=== PATIENT | male | born 1940 | race Caucasian/White ===

== ENCOUNTER → 2019-05-31 13:07 | Outpatient (CLI) | payer MEDICARE, OTHER ==
[~2019-05-31 13:07] MED LIST: ASPIRIN EC81 M1 PO; HYDROCODONE-APA1 TAB PO; ZOCOR20 MG PO; ZYPREXA2.5 MG PO
== END | disposition home or self-care (01) ==
LOC: D.RAD 13:07 → D.RT 14:00
PROVIDERS: ATTEND Internal Medicine Pulmonary Disease
DX: R06.00 Dyspnea, unspecified (principal)

== ENCOUNTER → 2020-07-30 07:52 | Outpatient (CLI) | payer MEDICARE, OTHER | END | disposition home or self-care (01) | LOC: D.RAD 07:52 | PROVIDERS: ATTEND Family Medicine | DX: J40 Bronchitis, not specified as acute or chronic (principal) ==